=== PATIENT | male | born 1995 | race Caucasian/White ===

== ENCOUNTER 2019-11-06 00:38 | Emergency (ER) | payer BC, SELFPAY ==
[2019-11-06 00:39] VITALS: BP 151/91; PULSE 104; RESP 16; TEMP 36.5; O2SAT 100
--- NOTE | 2019-11-06 01:13 | ED.HEATRA ---
HPI - Head Injury General Chief complaint: Head Injury Stated complaint: HEAD INJURY/VOMITING Time Seen by Provider: 11/06/19 00:39 Source: patient and RN notes reviewed Mode of arrival: ambulatory Limitations: no limitations History of Present Illness HPI Narrative: Pt is a 24 y/o male with a Hx of multiple concussions, who presents to the ED with c/o head injury happening this evening. He notes that he was trying to quickly open his car door around 17:00 yesterday when he accidentally struck the lt side of his forehead on the door. Pt states that he is unsure of whether or not he lost consciousness, noting that he believes he may have blacked out for a brief second immediately after the collision. He states that he has since developed a bump on his lt forehead, nausea, vomiting, and blurred vision. MD Complaint: head injury Onset (ago): hour(s) (7.5) Mechanism of Injury: other (struck head on car door) Location of injury: frontal (lt frontal head) Associated symptoms: vision changes (blurred vision), nausea, vomiting and other (bump on lt forehead) Related Data Allergies Allergy/AdvReac Type Severity Reaction Status Date / Time No Known Allergies Allergy Verified 03/28/17 19:04 Review of Systems Review of Systems: All systems reviewed & are unremarkable except as noted in HPI and below Eyes: Eyes: Reports blurry vision Gastrointestinal: Gastrointestinal: Reports nausea and Reports vomiting Integumentary/Breasts: Skin/Breast: Reports other (bump on lt forehead) Neurologic: Reports other (head injury) PMF Past Medical History Medical History Concussion Surgical History Surgical History History of testicular surgery repair of undescended testicle Social History Social History Smoking status: Former smoker Exam Narrative: Exam Narrative: GENERAL: Well-appearing, well-nourished, and in no acute distress. HEAD: Normocephalic, abrasion left forehead with slight underlying swelling. EYES: PERRL, EOMI ENT: Mucous membranes moist. CHEST: Clear to auscultation. No respiratory distress. HEART: Regular rate and rhythm. Normal peripheral pulses. EXTREMITIES: Normal range of motion. No edema. NEURO: No focal deficits. Alert and oriented x3. Course Course Emergency Course: Discussed diagnosis and treatment plan. Not felt patient needs CT scan given mechanism of injury. Recommend brain rest and will give work note for tomorrow. Vital Signs Vital signs: Vital Signs Temperature 97.7 F 11/06/19 00:39 Pulse Rate 104 H 11/06/19 00:39 Respiratory Rate 16 11/06/19 00:39 Blood Pressure 151/91 H 11/06/19 00:39 Pulse Oximetry 100 11/06/19 00:39 Temperature 97.7 F 11/06/19 00:39 Pulse Rate 104 H 11/06/19 00:39 Respiratory Rate 16 11/06/19 00:39 Blood Pressure 151/91 H 11/06/19 00:39 Pulse Oximetry 100 11/06/19 00:39 Discharge Plan Discharge Clinical Impression: Closed head injury Qualifiers: Encounter type: initial encounter Qualified Code(s): S09.90XA - Unspecified injury of head, initial encounter Patient Disposition: Home, Self-Care Condition: Stable Instructions: Concussion (ED) Additional Instructions: Return to the ER if you have a seizure, you cannot keep down food/water, or you have other concerns. Follow-up/Referrals: Lonnie Barriga MD [Primary Care Provider] - 1 Week Stand Alone Forms: Work/School Release IP Discharge Date/Time: 11/06/19 01:26
== END 2019-11-06 01:26 | disposition home or self-care (01) ==
LOC: ANHED 01:20
PROVIDERS: Emergency Provider Emergency Medicine; PCP Family Medicine
DX: S09.90XA Unspecified injury of head, initial encounter (principal); Z87.891 Personal history of nicotine dependence; W22.8XXA Striking against or struck by other objects, initial encounter
CPT/HCPCS: 99283